=== PATIENT | female | born 1960 | race Caucasian/White ===

== ENCOUNTER 2018-12-19 16:44 | Outpatient (CLI) | payer BC ==
--- NOTE | 2018-12-19 16:57 | RAD ---
Left wrist 3 views HISTORY: Fall. Left wrist injury. FINDINGS: Scaphoid waist and ulnar styloid are intact. There is irregularity of the posterior cortex of the distal radius on the lateral view, possibly representing an impacted fracture that is not well demonstrated on the other views. On the frontal and lateral views, the irregularity of the later al cortex of the base of the radial styloid has the appearance more suggestive of a chronic injury. No displaced fractures are apparent. Mild degenerative changes about the wrist. IMPRESSION: Impaction type injury of the distal radius. Age indeterminant. If there is point tenderne ss at the dorsal aspect of the distal radius, and in the setting of recent trauma, immobilization and orthopedic evaluation would be prudent.
== END 2018-12-19 16:45 | disposition home or self-care (01) ==
LOC: MADRAD 16:44
PROVIDERS: ATTEND Family Medicine
DX: M25.532 Pain in left wrist (principal); S69.92XA Unspecified injury of left wrist, hand and finger(s), initial encounter